=== PATIENT | female | born 1935 | race Caucasian/White ===

== ENCOUNTER 2021-03-24 19:44 | Emergency (ER) | payer MEDICARE, BC ==
[2021-03-24 20:03] VITALS: BP 196/84; PULSE 69
[2021-03-24] MEDS ORDERED: Sodium Chloride 0.9% 10 ML Syringe FLUSH PRN (20:09)
[2021-03-24] MEDS ORDERED: Nitroglycerin 2% Oint 1 GM UD Packet TOP ONE (20:10)
--- NOTE | 2021-03-24 20:13 | EDM.PDOC ---
ED HPI GENERAL MEDICAL PROBLEM - General Chief Complaint: Chest Pain Stated Complaint: CHEST PAIN AND ARM NUMB Time Seen by Provider: 03/24/21 19:57 Source of Information: Reports: Patient, RN Notes Reviewed - History of Present Illness INITIAL COMMENTS - FREE TEXT/NARRATIVE: 85 yr old female has been having some L arm numbness earlier today and some off and on chest tightness this afternoon over the past 4 to 6 hrs. Hx of Htn. Strong family hx of heart problems among her siblings. No cough, dyspnes, fever or chills. Took her regular 324 mg aspirin this past morning and 650 mg aspirin this afternoon. Left Chest Pain Score (Numeric/FACES): 5 - Related Data Allergies Allergy/AdvReac Type Severity Reaction Status Date / Time No Known Allergies Allergy Verified 03/24/21 20:02 Home Meds: Home Meds Arginine [l-Arginine] 1 tab PO DAILY 10/20/14 [History] Metoprolol Tartrate [Lopressor] 12.5 mg PO BID 10/20/14 [History] Vitamin B6-pyridOXINE 1 tab PO DAILY 10/20/14 [History] Cholecalciferol (Vitamin D3) [Vitamin D3] 1,000 units PO DAILY tablet 03/29/15 [Rx] Lutein [Lutein] 1 cap PO DAILY 03/29/15 [Rx] Hydrochlorothiazide 25 mg PO DAILY 03/24/21 [History] Past Medical History Other Gastrointestinal History: nausea post anesthesia in the past. states received a scopalamine patch with past left knee surgery and did not experience nausea. 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 Other Neuro History: migraine h/a's many years ago. stopped after menopause/hysterectomy. - Past Surgical History Other Musculoskeletal Surgeries/Procedures:: Right knee replacement in october, ED ROS GENERAL - Review of Systems Review Of Systems: See Below Constitutional: Denies: Fever, Chills, Diaphoresis HEENT: Denies: Throat Pain Respiratory: Reports: Pleuritic Chest Pain. Denies: Shortness of Breath, Cough Cardiovascular: Reports: Chest Pain. Denies: Lightheadedness GI/Abdominal: Denies: Abdominal Pain, Nausea, Vomiting Musculoskeletal: Denies: Shoulder Pain, Arm Pain, Back Pain Neurological: Reports: Other (Has had some mild numbness L upper arm). Denies: Trouble Speaking, Difficulty Walking, Weakness ED EXAM, GENERAL - Physical Exam Exam: See Below General Appearance: Alert, No Apparent Distress Eye Exam: Bilateral Eye: PERRL Throat/Mouth: Normal Inspection Head: Atraumatic Neck: Supple, Other (No JVD) Respiratory/Chest: No Respiratory Distress, Lungs Clear, Normal Breath Sounds, Other (Mild tenderness L sternal border and L ant. chest). No: Rales, Rhonchi, Wheezing Cardiovascular: Regular Rate, Rhythm GI/Abdominal: Soft, Non-Tender Back Exam: No: CVA Tenderness (L), CVA Tenderness (R) Extremities: Normal Inspection, Pedal Edema (very mild bilat). No: Leg Pain, Increased Warmth, Redness Neurological: Alert, Oriented, No Motor/Sensory Deficits Skin Exam: Warm, Dry, Normal Color, No Rash #1 Interpretation EKG Date: 03/24/21 Rhythm: NSR [place]: Normal P-Wave: Present QRS: Other (Q waves inf. and ant. leads) ST-T: Normal QT: Normal #2 Interpretation EKG Date: 03/24/21 Time: 22:25 Rhythm: NSR [place]: Normal P-Wave: Present QRS: Other (Q waves inf. and lat. leads) ST-T: Normal QT: Normal Course - Vital Signs Last Recorded V/S: Last Vital Signs Temp 97.8 F 03/24/21 19:56 Pulse 69 03/24/21 19:56 Resp 16 03/24/21 19:56 BP 196/84 H 03/24/21 19:56 Pulse Ox 100 03/24/21 19:56 - Orders/Labs/Meds Orders: Active Orders 24 hr Category Date Time Status Chest 1V Frontal [CR] Stat Exams 03/24/21 20:09 Taken Peripheral IV Insertion Adult [OM.PC] Stat Oth 03/24/21 20:10 Ordered Labs: Laboratory Tests 03/24/21 03/24/21 03/24/21 Range/Units 19:58 19:58 21:59 WBC 7.07 (3.98-10.04) K/mm3 RBC 4.48 (3.98-5.22) M/mm3 Hgb 13.7 D (11.2-15.7) gm/dl Hct 41.5 (34.1-44.9) % MCV 92.6 (79.4-94.8) fl MCH 30.6 (25.6-32.2) pg MCHC 33.0 (32.2-35.5) g/dl RDW Std Deviation 43.4 (36.4-46.3) fL Plt Count 336 (182-369) K/mm3 MPV 10.1 (9.4-12.3) fl Neut % (Auto) 53.0 (34.0-71.1) % Lymph % (Auto) 33.7 (19.3-51.7) % [place] % (Auto) 11.0 (4.7-12.5) % Eos % (Auto) 1.6 (0.7-5.8) Baso % (Auto) 0.4 (0.1-1.2) % Neut # (Auto) 3.75 (1.56-6.13) K/mm3 Lymph # (Auto) 2.38 (1.18-3.74) K/mm3 [place] # (Auto) 0.78 H (0.24-0.36) K/mm3 Eos # (Auto) 0.11 (0.04-0.36) K/mm3 Baso # (Auto) 0.03 (0.01-0.08) K/mm3 Sodium 142 (136-145) mEq/L Potassium 3.3 L (3.5-5.1) mEq/L Chloride 103 (98-107) mEq/L Carbon Dioxide 27 (21-32) mEq/L Anion Gap 15.3 H (5-15) BUN 26 H (7-18) mg/dL Creatinine 0.8 (0.55-1.02) mg/dL Est Cr Clr Drug Dosing 37.38 mL/min Estimated GFR (MDRD) > 60 (>60) mL/min BUN/Creatinine Ratio 32.5 H (14-18) Glucose 101 H (70-99) mg/dL Calcium 9.1 (8.5-10.1) mg/dL Total Bilirubin 0.4 (0.2-1.0) mg/dL AST 17 (15-37) U/L ALT 23 (14-59) U/L Alkaline Phosphatase 65 (46-116) U/L Troponin I < 0.017 < 0.017 (0.00-0.056) ng/mL Total Protein 6.6 (6.4-8.2) g/dl Albumin 3.6 (3.4-5.0) g/dl Globulin 3.0 gm/dL Albumin/Globulin Ratio 1.2 (1-2) Meds: Medications Discontinued Medications Generic Name Dose Route Start Last Admin Trade Name Carlos PRN Reason Stop Dose Admin Acetaminophen 975 mg 03/24/21 22:25 03/24/21 22:31 Acetaminophen 325 Mg Tab PO 03/24/21 22:26 975 mg NOW ONE Administration Nitroglycerin 1 gm 03/24/21 20:10 03/24/21 20:16 Nitroglycerin 2% Oint 1 Gm Ud Packet TOP 03/24/21 20:11 1 gm ONETIME ONE Administration Sodium Chloride 10 ml 03/24/21 20:09 03/24/21 20:15 Sodium Chloride 0.9% 10 Ml Syringe FLUSH 10 ml ASDIRECTED PRN Administration Keep Vein Open - Re-Assessments/Exams Free Text/Narrative Re-Assessment/Exam: 03/24/21 21:16 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 Trop nl, CXR nl. Will do a repeat 2 hr trop. 03/24/21 22:25. Having more discomfort, will repeat EKG. On reexam she has tenderness of L sternal border, L chest wall. 03/24/21 22:39. repeat trop nl, repeat EKG unchanged from prior EKG. 23:45. Pt resting comfortably. sinus rythm, no ectopy. Have offered hospital admission. Pt is comfortable to go home, will follow up clinic in 2 to 3 days. Departure - Departure Time of Disposition: 21:04 Disposition: Home, Self-Care 01 Condition: Fair Clinical Impression: Atypical chest pain Instructions: Nonspecific Chest Pain, Adult, [id number] Referrals: Darling Saenz NP [Primary Care Provider] - Forms: ED Department Discharge Additional Instructions: Your heart and lungs have checked out well this evening. Continue daily aspirin and other medications as prescribed. See you medical provider in about 2 to 3 days for recheck. Call for appt. in AM. Return to ED as needed if symptoms worsening in any way. Sepsis Event Note (ED) - Evaluation Sepsis Screening Result: No Definite Risk - Focused Exam Vital Signs: Vital Signs Temp Pulse Resp BP Pulse Ox 03/24/21 19:56 97.8 F 69 16 196/84 H 100 - My Orders Last 24 Hours: My Active Orders 03/24/21 20:09 Chest 1V Frontal [CR] Stat 03/24/21 20:10 Peripheral IV Insertion Adult [OM.PC] Stat - Assessment/Plan Last 24 Hours: My Active Orders 03/24/21 20:09 Chest 1V Frontal [CR] Stat 03/24/21 20:10 Peripheral IV Insertion Adult [OM.PC] Stat
[2021-03-24] MEDS ORDERED: Acetaminophen 325 MG Tab PO ONE (22:25)
--- NOTE | 2021-03-25 08:05 | CR ---
Chest: Portable view of the chest was obtained. Comparison: No prior chest x-ray is available. Heart size and mediastinum are within normal limits. Lungs are clear with no acute parenchymal change. No acute osseous abnormality is appreciated. Impression: 1. Nothing acute is seen on portable chest x-ray. Diagnostic code #1
== END 2021-03-25 00:21 | disposition home or self-care (01) ==
LOC: JD.ED 19:44
DX: R07.89 Other chest pain (principal); Z79.899 Other long term (current) drug therapy
CPT/HCPCS: 36415; 71045; 80053; 84484; 85025; 93005; 99285; A9270; 93010; 99284

== ENCOUNTER 2021-08-03 08:43 | Emergency (ER) | payer MEDICARE, BC ==
[2021-08-03] MEDS ORDERED: Metoclopramide 10 MG/2 ML SDV IVPUSH ONE (08:59)
[2021-08-03] MEDS ORDERED: HYDROmorphone 0.5 MG/0.5 ML Syringe IVPUSH ONE ×2 (08:59→12:10)
[2021-08-03] MEDS ORDERED: Dextrose 5%-0.9% NaCl 1,000 ML IV SCH (09:00)
--- NOTE | 2021-08-03 09:04 | EDM.PDOC ---
ED HPI GENERAL MEDICAL PROBLEM - General Chief Complaint: Lower Extremity Injury/Pain Stated Complaint: [facility] Time Seen by Provider: 08/03/21 08:50 Source of Information: Reports: Patient, EMS History Limitations: Reports: No Limitations - History of Present Illness INITIAL COMMENTS - FREE TEXT/NARRATIVE: 86-year-old female attends the ED per [facility] after reportedly tripping and falling while entering her home yesterday p.m. about 1330 hrs. She fell directly on both knees but the right knee took the brunt of the fall. She has bilateral total knee prostheses. She has developed severe pain and swelling distal right femur above her knee prosthesis making it impossible to weight- bear. She has been scooting around the house with a seated walker with wheels. The knee pain did ache quite badly all night. No recent changes to medications. She denies hitting her head or neck. No chest injury wrists or elbow injuries. Of note she has not received vaccination for COVID-19 Onset: Sudden Onset Date: 08/02/21 Onset Time: 13:30 Duration: Hour(s):, Getting Worse Location: Reports: Lower Extremity, Right (Distal right femur above right knee prosthesis) Quality: Reports: Ache, Throbbing Severity: Moderate Improves with: Reports: Rest Worsens with: Reports: Movement Context: Reports: Trauma (Trip and fall at home while injuring her home yesterday from the garage). Denies: Activity, Exercise, Lifting, Sick Contact Associated Symptoms: Reports: No Other Symptoms Treatments HOSPICE TEAM LEAD: Reports: Acetaminophen Right Knee Pain Score (Numeric/FACES): 2 - Related Data Allergies Allergy/AdvReac Type Severity Reaction Status Date / Time No Known Allergies Allergy Verified 08/03/21 08:54 Home Meds: Home Meds Arginine [l-Arginine] 1 tab PO DAILY 10/20/14 [History] Metoprolol Tartrate [Lopressor] 12.5 mg PO BID 10/20/14 [History] Vitamin B6-pyridOXINE 1 tab PO DAILY 10/20/14 [History] Cholecalciferol (Vitamin D3) [Vitamin D3] 1,000 units PO DAILY tablet 03/29/15 [Rx] Lutein [Lutein] 1 cap PO DAILY 03/29/15 [Rx] Hydrochlorothiazide 25 mg PO DAILY 03/24/21 [History] Past Medical History Cardiovascular History: Reports: Hypertension Other Gastrointestinal History: nausea post anesthesia in the past. states received a scopalamine patch with past left knee surgery and did not experience nausea. 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 Other Neuro History: migraine h/a's many years ago. stopped after menopause/hysterectomy. - Past Surgical History Musculoskeletal Surgical History: Reports: Knee Replacement (Bilateral total knee replacements) Other Musculoskeletal Surgeries/Procedures:: Right knee replacement in october, Social & Family History - Living Situation & Occupation Living situation: Reports: , Alone Occupation: Retired Review of Systems - Review of Systems Review Of Systems: See Below Constitutional: Reports: No Symptoms Eyes: Reports: Glasses Ears: Reports: No Symptoms Nose: Reports: No Symptoms Mouth/Throat: Reports: No Symptoms Respiratory: Reports: No Symptoms Cardiovascular: Reports: Other (Patient does have hypertension well-controlled with current medications) GI/Abdominal: Reports: Other (Rare problems with constipation) Genitourinary: Reports: Other (Occasional urinary incontinence mostly urgency induced) Musculoskeletal: Reports: Joint Pain (Arthritic changes low back neck occasional pain in shoulders. Occasional pain in hips. Bilateral total knee replacements) Skin: Reports: No Symptoms Neurological: Reports: No Symptoms Psychiatric: Reports: No Symptoms ED EXAM, GENERAL - Physical Exam Exam: See Below Exam Limited By: No Limitations General Appearance: Alert, WD/WN, No Apparent Distress, Other (Temperature is 36.3 degrees. Heart rate 78 sinus respiratory 16 with O2 sats of 98% room air. BP 11/02/1970) Eye Exam: Bilateral Eye: Normal Inspection (No blepharal pallor or scleral icterus), PERRL Throat/Mouth: Normal Inspection, Normal Lips (Tongue is mildly dry), Other Head: Atraumatic, Normocephalic Neck: Normal Inspection, Supple, Non-Tender, Full Range of Motion. No: Carotid Bruit, Lymphadenopathy (L), Lymphadenopathy (R) Respiratory/Chest: No Respiratory Distress, Lungs Clear, Normal Breath Sounds, No Accessory Muscle Use, Other (No pain on compression of ribs or sternum. Acromioclavicular joints normal) Cardiovascular: Normal Peripheral Pulses, Regular Rate, Rhythm, No Edema, No Gallop, No Murmur, No Rub Peripheral Pulses: 2+: Carotid (L), Carotid (R), Posterior Tibial (L), Posterior Tibial (R), Dorsalis Pedis (L), Dorsalis Pedis (R) GI/Abdominal: Soft, Non-Tender, No Organomegaly, No Distention, No Abnormal Bruit Back Exam: Normal Inspection. No: CVA Tenderness (L), CVA Tenderness (R) Extremities: Other (She has midline well-healed scars over both anterior knees. The left knee she has full unopposed range of motion knee and hip without pain on the right hip. Right leg reveals marked swelling distal right femur compatible with fracture. No injuries to the tib-fib identified ankles normal) Neurological: Alert, Oriented, CN II-XII Intact, Normal Cognition. No: Normal Gait Psychiatric: Normal Affect, Normal Mood Skin Exam: Warm, Dry, Intact, Normal Color, No Rash #1 Interpretation EKG Date: 08/03/21 Time: 09:15 Rhythm: NSR Rate (Beats/Min): 73 [place]: LAD-Left Jackson Deviation (Mild left axis deviation of -19 degrees) P-Wave: Present QRS: Other (There are Q waves in lead V1 and near Q-wave in V2 combined with old anteroseptal myocardial infarction. Q-wave in lead III and near Q-wave in aVF consider old inferior .decreased voltage limb leads wall myocardial infarction.) ST-T: Other (Diffuse early repolarization pattern) QT: Prolonged (Mildly prolonged) EKG Interpretation Comments: Abnormal ECG Course - Vital Signs Last Recorded V/S: Last Vital Signs Temp 36.3 C 08/03/21 08:43 Pulse 78 08/03/21 08:43 Resp 16 08/03/21 08:43 BP 129/71 08/03/21 08:43 Pulse Ox 98 08/03/21 08:43 - Orders/Labs/Meds Orders: Active Orders 24 hr Category Date Time Status URINALYSIS W/MICROSCOPIC [UA W/MICROSCOPIC] [URIN] Stat Lab 08/03/21 09:01 Ordered Dextrose 5%-0.9% NaCl [Dextrose 5%-Normal Saline] 1,000 Med 08/03/21 09:00 Active ml IV ASDIRECTED Durable Medical Equipment for Discharge [DME for Oth 08/03/21 11:47 Ordered Discharge] [COMM] Stat Medication Orders Dextrose/Sodium Chloride (Dextrose 5%-Normal Saline) 1,000 mls @ 100 mls/hr IV ASDIRECTED VARINDER Last Admin: 08/03/21 09:54 Dose: 100 mls/hr Documented by: VARINDERTHANG Labs: Laboratory Tests 08/03/21 08/03/21 08/03/21 Range/Units 09:00 09:00 09:00 WBC 9.45 (3.98-10.04) K/mm3 RBC 4.25 (3.98-5.22) M/mm3 Hgb 12.5 (11.2-15.7) gm/dl Hct 38.9 (34.1-44.9) % MCV 91.5 (79.4-94.8) fl MCH 29.4 (25.6-32.2) pg MCHC 32.1 L (32.2-35.5) g/dl RDW Std Deviation 42.9 (36.4-46.3) fL Plt Count 271 (182-369) K/mm3 MPV 10.3 (9.4-12.3) fl Neut % (Auto) 89.4 H (34.0-71.1) % Lymph % (Auto) 5.2 L (19.3-51.7) % [place] % (Auto) 5.0 (4.7-12.5) % Eos % (Auto) 0.1 L (0.7-5.8) Baso % (Auto) 0.2 (0.1-1.2) % Neut # (Auto) 8.45 H (1.56-6.13) K/mm3 Lymph # (Auto) 0.49 L (1.18-3.74) K/mm3 [place] # (Auto) 0.47 H (0.24-0.36) K/mm3 Eos # (Auto) 0.01 L (0.04-0.36) K/mm3 Baso # (Auto) 0.02 (0.01-0.08) K/mm3 PT 10.8 (9.7-12.0) SECONDS INR 0.97 APTT 26.5 (21.7-31.4) SECONDS Sodium 139 (136-145) mEq/L Potassium 3.7 (3.5-5.1) mEq/L Chloride 104 (98-107) mEq/L Carbon Dioxide 25 (21-32) mEq/L Anion Gap 13.7 (5-15) BUN 21 H (7-18) mg/dL Creatinine 1.3 H (0.55-1.02) mg/dL Est Cr Clr Drug Dosing 22.57 mL/min Estimated GFR (MDRD) 39 (>60) mL/min BUN/Creatinine Ratio 16.2 (14-18) Glucose 103 H (70-99) mg/dL Calcium 8.4 L (8.5-10.1) mg/dL Magnesium 1.7 L (1.8-2.4) mg/dL Total Bilirubin 0.5 (0.2-1.0) mg/dL AST 54 H (15-37) U/L ALT 105 H (14-59) U/L Alkaline Phosphatase 47 (46-116) U/L C-Reactive Protein < 0.2 (<1.0) mg/dL NT-Pro-B Natriuret Pep (0-450) pg/mL Total Protein 7.5 (6.4-8.2) g/dl Albumin 4.0 (3.4-5.0) g/dl Globulin 3.5 gm/dL Albumin/Globulin Ratio 1.1 (1-2) SARS-CoV-2 RNA (SOO) (NEGATIVE) 08/03/21 08/03/21 Range/Units 09:00 09:00 WBC (3.98-10.04) K/mm3 RBC (3.98-5.22) M/mm3 Hgb (11.2-15.7) gm/dl Hct (34.1-44.9) % MCV (79.4-94.8) fl MCH (25.6-32.2) pg MCHC (32.2-35.5) g/dl RDW Std Deviation (36.4-46.3) fL Plt Count (182-369) K/mm3 MPV (9.4-12.3) fl Neut % (Auto) (34.0-71.1) % Lymph % (Auto) (19.3-51.7) % [place] % (Auto) (4.7-12.5) % Eos % (Auto) (0.7-5.8) Baso % (Auto) (0.1-1.2) % Neut # (Auto) (1.56-6.13) K/mm3 Lymph # (Auto) (1.18-3.74) K/mm3 [place] # (Auto) (0.24-0.36) K/mm3 Eos # (Auto) (0.04-0.36) K/mm3 Baso # (Auto) (0.01-0.08) K/mm3 PT (9.7-12.0) SECONDS INR APTT (21.7-31.4) SECONDS Sodium (136-145) mEq/L Potassium (3.5-5.1) mEq/L Chloride (98-107) mEq/L Carbon Dioxide (21-32) mEq/L Anion Gap (5-15) BUN (7-18) mg/dL Creatinine (0.55-1.02) mg/dL Est Cr Clr Drug Dosing mL/min Estimated GFR (MDRD) (>60) mL/min BUN/Creatinine Ratio (14-18) Glucose (70-99) mg/dL Calcium (8.5-10.1) mg/dL Magnesium (1.8-2.4) mg/dL Total Bilirubin (0.2-1.0) mg/dL AST (15-37) U/L ALT (14-59) U/L Alkaline Phosphatase (46-116) U/L C-Reactive Protein (<1.0) mg/dL NT-Pro-B Natriuret Pep 11 (0-450) pg/mL Total Protein (6.4-8.2) g/dl Albumin (3.4-5.0) g/dl Globulin gm/dL Albumin/Globulin Ratio (1-2) SARS-CoV-2 RNA (SOO) Negative (NEGATIVE) Meds: Medications Generic Name Dose Route Start Last Admin Trade Name Frechava PRN Reason Stop Dose Admin Dextrose/Sodium Chloride 1,000 mls @ 100 mls/hr 08/03/21 09:00 08/03/21 09:54 Dextrose 5%-Normal Saline IV 100 mls/hr ASDIRECTED VARINDER Administration Discontinued Medications Generic Name Dose Route Start Last Admin Trade Name Freq PRN Reason Stop Dose Admin Hydromorphone HCl 0.5 mg 08/03/21 08:59 08/03/21 09:23 Hydromorphone 0.5 Mg/0.5 Ml Syringe IVPUSH 08/03/21 09:00 0.5 mg ONETIME ONE Administration Metoclopramide HCl 5 mg 08/03/21 08:59 08/03/21 09:20 Metoclopramide 10 Mg/2 Ml Sdv IVPUSH 08/03/21 09:00 5 mg ONETIME ONE Administration - Radiology Interpretation Free Text/Narrative:: 86-year-old female presents to the ED per [facility] from her home. She states she tripped and fell entering her home yesterday p.m. about 1330 hrs. and landed hard on both knees but the right knee took the brunt of the injury. She has had previous total knee replacements bilaterally. She denies injuries to her hands or wrists neck or head. She does state that the palmar aspect of her right hand hurts a bit. She has been scooting around her home on a seated walker with wheels that she had since knee surgery. Knee pain ached pretty bad all night long. On exam there is obvious deformity and swelling of the distal right femur compatible with fracture above the prosthesis. Routine labs and "Covid screen will be done. ECG, chest x-ray, x-ray right femur 2 view to be done. Will be given Dilaudid 0.5 mg IV with Reglan 5 mg IV for pain relief. IV will be D5 normal saline at 100 mils an hour - Re-Assessments/Exams Free Text/Narrative Re-Assessment/Exam: 08/03/21 10:46: I have discussed the results of the x-rays of the right femur which reveal a fracture within the distal femur directly above the prosthesis with mild displacement. Chest x-ray reveals heart size and mediastinum to be within normal limits. Lungs are clear with no acute parenchymal changes. Bony structures show scattered degenerative change within the spine as well as slight scoliosis. She is going to require surgical repair on the distal femur. I will phone [facility] in this regard as both of her knees have been replaced by Dr. Merida. 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 At present her pain is controlled. Her daughter is with her at this time and aware of the results and of the test. 08/03/21 11:03 White count is 9.45. The auto differential reveals 89.4% neutrophils. Hemoglobin is 12.5 with hematocrit of 38.9. Platelet count is 271,000. PT is 10.8 with an INR of 0.97. PTT is 26.5. Sodium 139 with a potassium of 3.7. Chloride 104 the bicarb of 25. Anion gap is 13.7. BUN is 21 with a creatinine of 1.3 and a GFR of 39. Glucose is 103. Calcium 8.4 slightly low magnesium slightly low at 1.7. Bilirubin is 0.5 with AST mildly elevated at 54 and ALT mildly elevated at 105. Alkaline phosphatase is normal at 47. C-reactive protein is less than 0.2. BNP is 11 with a total protein of 7.5 and an albumin fraction of 4.0 COVID-19 screen is negative. 08/03/21 11:36 Care has been accepted by Dr. Regal[facility] [place] the patient be transferred to [facility] in [place] per ground ambulance. Right lower extremity has been immobilized by long knee immobilizer. 08/03/21 12:10 paramedics will be here shortly to provide transferred to [place]. We will give her Dilaudid 0.5 mg IV for pain relief during transport Departure - Departure Time of Disposition: 12:11 Disposition: DC/Tfer to Acute Hospital 02 Condition: Fair Clinical Impression: Fall as cause of accidental injury at home as place of occurrence Qualifiers: Encounter type: initial encounter Qualified Code(s): W19.XXXA - Unspecified fall, initial encounter; Y92.009 - Unspecified place in unspecified non- institutional (private) residence as the place of occurrence of the external cause Femur fracture, right Qualifiers: Encounter type: initial encounter Femur location: distal, unspecified portion Fracture type: closed Fracture morphology: unspecified fracture morphology Qualified Code(s): S72.401A - Unspecified fracture of lower end of right femur, initial encounter for closed fracture - Discharge Information Referrals: Darling Saenz NP [Primary Care Provider] - Forms: ED Department Discharge Sepsis Event Note (ED) - Focused Exam Vital Signs: Vital Signs Temp Pulse Resp BP Pulse Ox 08/03/21 08:43 36.3 C 78 16 129/71 98 - My Orders Last 24 Hours: My Active Orders 08/03/21 09:00 Dextrose 5%-0.9% NaCl [Dextrose 5%-Normal Saline] 1,000 ml IV ASDIRECTED 08/03/21 09:01 URINALYSIS W/MICROSCOPIC [UA W/MICROSCOPIC] [URIN] Stat 08/03/21 11:47 Durable Medical Equipment for Discharge [DME for Discharge] [COMM] Stat - Assessment/Plan Last 24 Hours: My Active Orders 08/03/21 09:00 Dextrose 5%-0.9% NaCl [Dextrose 5%-Normal Saline] 1,000 ml IV ASDIRECTED 08/03/21 09:01 URINALYSIS W/MICROSCOPIC [UA W/MICROSCOPIC] [URIN] Stat 08/03/21 11:47 Durable Medical Equipment for Discharge [DME for Discharge] [COMM] Stat
--- NOTE | 2021-08-03 10:23 | CR ---
Chest: Frontal view of the chest was obtained. Comparison: Prior chest x-ray of 03/24/21. Heart size and mediastinum appear within normal limits. Lungs are clear with no acute parenchymal change. Bony structures show scattered degenerative change within the spine as well as slight scoliosis. Impression: 1. Nothing acute is seen on frontal chest x-ray. Diagnostic code #1
--- NOTE | 2021-08-03 10:23 | CR ---
Right femur: AP and lateral views of the right femur were obtained. Comparison: No prior femur study is available. Knee prosthesis is seen. Fracture is noted directly above the femoral component within the distal femur. Mild displacement is seen. Osteopenia is noted. Mild vascular calcification is seen. Impression: 1. Knee prosthesis. 2. Fracture within the distal femur directly above the prosthesis with mild displacement. Diagnostic code #3
[2021-08-03 12:42] VITALS: BP 123/61; PULSE 74
== END 2021-08-03 12:32 ==
LOC: JD.ED 08:43 → SUPCPDRO 08:43 → JD.ED 12:32
DX: S72.401A Unspecified fracture of lower end of right femur, initial encounter for closed fracture (principal); I10 Essential (primary) hypertension; R94.31 Abnormal electrocardiogram [ECG] [EKG]; Z96.653 Presence of artificial knee joint, bilateral; Z79.899 Other long term (current) drug therapy; Z20.822 Contact with and (suspected) exposure to COVID-19; W01.0XXA Fall on same level from slipping, tripping and stumbling without subsequent striking against object, initial encounter; Y92.009 Unspecified place in unspecified non-institutional (private) residence as the place of occurrence of the external cause
CPT/HCPCS: 36415; 71045; 73552; 80053; 81001; 83735; 83880; 85025; 85610; 85730; 86140; 93005; 96374; 96375; 96376; 99285; J1170; J2765; J7042; U0002